=== PATIENT | female | born 1970 | race Caucasian/White ===

== ENCOUNTER 2021-07-09 18:46 | Emergency (ER) | payer OTHER, SELFPAY ==
[2021-07-09 18:53] VITALS: BP 181/115; PULSE 115; RESP 20; TEMP 36.6; O2SAT 97; BMI 33.3
[2021-07-09 19:00] VITALS: BP 187/111
--- NOTE | 2021-07-09 19:00 | ED_ITS ---
HPI - Overdose General Chief Complaint: Overdose Stated Complaint: overdose Time Seen by Provider: 07/09/21 18:57 History of Present Illness HPI Narrative: patient is a 50-year-old female presents today after using heroin. Patient was found unresponsive was given Narcan. Woke up with nausea initially. Patient sent into the emergency department for further evaluation. Patient is a transgender female. no chest pain no diaphoresis no shortness of breath at this time no fever no chills Related Data Allergies Allergy/AdvReac Type Severity Reaction Status Date / Time No Known Allergies Allergy Unverified 01/15/20 14:50 Review of Systems Review of Systems: no chest pain positive nausea no vomiting Yes all other systems are reviewed and are negative [facility] Past Medical History Attestation statement: The following information was validated with the patient. Social History Social History Advance Directives: No Advance Directives Information Provided: No Physical Exam Vital Signs: Vital Signs: Last Vital Signs Temp 97.8 F 07/09/21 18:53 Pulse 119 H 07/09/21 19:18 Resp 20 07/09/21 18:53 BP 187/111 H 07/09/21 19:00 Pulse Ox 93 07/09/21 19:18 BMI result Body Mass Index 33.3 Appearance: Alert. Oriented X3. No acute distress. Eyes: Pupils equal, round and reactive to light. ENT: Pharynx normal. Neck: Normal inspection. Neck supple. No lymph nodes noted. No crepitus CVS: Normal heart rate and rhythm. Pulses normal. Normal S1 and S2 Respiratory: No respiratory distress. Breath sounds normal. No Wheezing. No rales Abdomen: Soft and nontender. No rigidity. No distention. good BS x4 Skin: Skin warm and dry. Normal skin color. Normal skin turgor. Extremities: No lower extremity edema. Neurovascular intact to all extremities. No Lacerations. No Rash Neuro: Oriented X 3. No motor deficit. No sensory deficit. Moving all extermities. No slurred speech MDM - Overdose MDM Narrative Medical decision making narrative: patient monitor in the emergency department for 2 hours. No distress. Will discharge patient home. Currently in stable condition Medical Records Attestation: I reviewed the patient's medical records. Lab Data Attestation: I reviewed the patient's lab results. Discharge Plan Discharge Clinical Impression: Drug overdose Patient Disposition: Home, Self-Care Instructions: Adult Overdose (ED), Opioid Use Disorder (ED), Opioid Safety (ED) Additional Instructions: please stop using heroin. you almost today. Please go to detox. Referrals: Physician,Unknown J [Primary Care Provider] - 2 days ( Please go to detox.)
[2021-07-09] MEDS: ondansetron HCL 4 MG/2 ML VIAL IVPUSH (19:06)
[2021-07-09 19:18] VITALS: PULSE 119; O2SAT 93
[2021-07-09 20:56] VITALS: BP 173/105; PULSE 113; RESP 16; TEMP 36.9; O2SAT 94
--- NOTE | 2021-07-09 20:58 | HO.SUDE ---
Pt reports that she hasn't been using heroin for the past 2-3 years, however, today while visiting her brother she said she was triggered and used again. She is connected with , outpt providers, and a therapist. She reports that she used to end up in the hospital a lot more when she was using more regularly. She is insightful and aware of her triggers as well as the stressors that can lead her to utilizing substances to cope. She declined substance use treatment resources at this time. She is willing to meet with a assistant wrestling coach in hopes of getting connected with a assistant wrestling coach closer to home ([place]) to strength her social support system.
[2021-07-09] MEDS: Naloxone HCl Nasal TAKE HOME 4 MG SPRAY NOSTRILALT (21:16)
--- NOTE | 2021-07-09 21:23 | MHC.CARE ---
Pt reports having no transportation back to her family's house so CARE Team will provide her with a Lyft ride to her mom's house.
--- NOTE | 2021-07-09 21:34 | MHC.RECOVSUP ---
? Reason for consult:Recovery Support o ? ? ?Current location: ?ED[facility]12 o ? ? ?Identified substance use concern: Heroine? - Overdose - Support ? ?Intervention: o Community resources provided o Harm reduction discussion ? Additional information:?I was able to connect with patient and review harm reduction strategies. I was able to provide community resources in the [place] area for recovery coaching and AA meetings. Pt is not interested in treatment or detox at this time. A Lift was provided.
== END 2021-07-09 21:45 | disposition home or self-care (01) ==
PROVIDERS: Emergency Provider Emergency Medicine Emergency Medical Services
DX: T40.1X1A Poisoning by heroin, accidental (unintentional), initial encounter (principal); R40.4 Transient alteration of awareness; Y92.9 Unspecified place or not applicable; R11.0 Nausea; F64.0 Transsexualism
CPT/HCPCS: 96374; 99283; 99284; J2405